=== PATIENT | male | born 1985 | race Caucasian/White ===

== ENCOUNTER 2018-02-27 14:35 | Day surgery (SDC) | payer SELFPAY ==
[~2018-02-27 14:35] MED LIST: DEXAMETHASONE SOD PHOSPHATE INJ 4 MG/1 ML VIAL ONE; LIDOCAINE 2% INJ-PF (20 MG/ML) 2 ML AMPUL ONE; ONDANSETRON HCL INJ/PF 4 MG/2 ML SDV ONE; SUCCINYLCHOLINE CHLORIDE INJ 200 MG/10 ML VIAL ONE
[2018-02-27] MEDS ORDERED: ONDANSETRON HCL INJ/PF 4 MG/2 ML SDV IV ONE (14:56)
[2018-02-27] MEDS ORDERED: MORPHINE SULFATE 10 MG/ML INJ IV ONE (14:56)
--- NOTE | 2018-02-27 14:59 | ER Document Report ---
ED General - General Mode of Arrival: Ambulatory Information source: Patient TRAVEL OUTSIDE OF THE [place] IN LAST 30 DAYS: No <ISHMAEL DAVIES - Last Filed: 02/27/18 15:10> <YANCI RODRÍGUEZ - Last Filed: 02/27/18 17:01> - General Chief Complaint: Puncture Wound Stated Complaint: NAIL IN RIGHT LEG Time Seen by Provider: 02/27/18 14:44 Notes: Patient is a 32 year old Bruneian speaking male presenting to the emergency department complaining of right leg pain due to a puncture wound. Friend/ Coworker at bedside states the patient accidentally shot himself in the right posterior leg due with an 3.5 inch nail gun at approximately 1400. Patient states it is very painful and he is unable to extend it due to the sensation that the nail is stuck on "something". Friend/Coworker at bedside is fluent in [place]uneian and Italian and was able to translate for the patient who speaks some Italian. ALVARADO was not rendered due to urgency. (ISHMAEL DAVIES) - Related Data Allergies/Adverse Reactions: No Known Allergies Allergy (Unverified 02/27/18 14:36) Past Medical History - General Information source: Patient - Social History Smoking Status: Current Some Day Smoker Cigarette use (# per day): Yes Chew tobacco use (# tins/day): No Smoking Education Provided: No Frequency of alcohol use: Occasional Family History: Reviewed & Not Pertinent <ISHMAEL DAVIES - Last Filed: 02/27/18 15:10> Review of Systems - Review of Systems Constitutional: No symptoms reported EENT: No symptoms reported Cardiovascular: No symptoms reported Respiratory: No symptoms reported Gastrointestinal: No symptoms reported Genitourinary: No symptoms reported Musculoskeletal: See HPI Skin: No symptoms reported Hematologic/Lymphatic: No symptoms reported Neurological/Psychological: No symptoms reported -: Yes All other systems reviewed and negative <ISHMAEL DAVIES - Last Filed: 02/27/18 15:10> Physical Exam <ISHMAEL DAVIES - Last Filed: 02/27/18 15:10> <YANCI RODRÍGUEZ - Last Filed: 02/27/18 17:01> - Vital signs Vitals: Temp Pulse Resp BP Pulse Ox 98.3 F 104 H 24 H 150/76 H 96 02/27/18 14:40 02/27/18 14:40 02/27/18 14:40 02/27/18 14:40 02/27/18 14:40 - Notes Notes: GENERAL: Alert,appears in a lot of pain, laying face down in bed. No acute distress. HEAD: Normocephalic, atraumatic. EYES: Pupils equal, round, and reactive to light. Extraocular movements intact. ENT: Oral mucosa moist, tongue midline. NECK: Full range of motion. Supple. Trachea midline. LUNGS: Clear to auscultation bilaterally, no wheezes, rales, or rhonchi. No respiratory distress. HEART: Regular rate and rhythm. No murmurs, gallops, or rubs. ABDOMEN: Soft, non-tender. Non-distended. Bowel sounds present in all 4 quadrants. EXTREMITIES: Moves all 4 extremities spontaneously. RLE contains a nail through blue jeans in the inferior part of the popliteal fossa, medial to midline. The nail indents the skin with products of blue jeans cut down to approximately 1 mm around nail. RLE is in a flexed position at a little more than 45 degrees. Patient is unable to extend leg due to pain and the feeling that the nail is stuck on "something". NEUROLOGICAL: Alert and oriented x3. Normal speech. PSYCH: Normal affect, normal mood. SKIN: Warm, dry, normal turgor. (ISHMAEL DAVIES) Course <SAMSONILASAGE - Last Filed: 02/27/18 15:10> - Laboratory Result Diagrams: 02/27/18 15:15 02/27/18 15:15 - Diagnostic Test Radiology reviewed: Image reviewed, Reports reviewed - CT scan shows the nail enters the posterior tibia and does not quite go all the way to the anterior cortex. The nail head remains outside of the skin and tense the skin inward. The nail appears to have missed the popliteal vessels. - Consults Dr. Bradley Time consulted: 16:25 Consulted provider: will see as inpatient <YANCI RODRÍGUEZ - Last Filed: 02/27/18 17:01> - Re-evaluation Re-evalutation: 02/27/18 17:01 The patient gave me permission to allow his boss to look at his CT scan. His boss took pictures of selected images on his cell phone to take back to show the patient so he could see what the nail through the tibia looked like. (YANCI RODRÍGUEZ) - Vital Signs Vital signs: Temp Pulse Resp BP Pulse Ox 98.3 F 104 H 24 H 150/76 H 96 02/27/18 14:40 02/27/18 14:40 02/27/18 14:40 02/27/18 14:40 02/27/18 14:40 - Laboratory Laboratory results interpreted by me: 02/27/18 02/27/18 15:15 15:15 Seg Neutrophils % 80.8 H Absolute Neutrophils 8.3 H Glucose 115 H Calcium 10.4 H Discharge <ISHMAEL DAVIES - Last Filed: 02/27/18 15:10> - Discharge Admitting Provider: Dr. Bradley Unit Admitted: Surgical Floor <YANCI RODRÍGUEZ - Last Filed: 02/27/18 17:01> - Discharge Clinical Impression: Bone injury Injury by nail gun Qualifiers: Encounter type: initial encounter Qualified Code(s): W29.4XXA - Contact with nail gun, initial encounter Foreign body in right lower extremity Qualifiers: Encounter type: initial encounter Qualified Code(s): S80.851A - Superficial foreign body, right lower leg, initial encounter Disposition: ADMITTED INPATIENT Scribe Attestation: 02/27/18 15:17 I personally performed the services described in the documentation, reviewed and edited the documentation which was dictated to the scribe in my presence, and it accurately records my words and actions. (YANCI RODRÍGUEZ) Scribe Documentation - Scribe Written by Cortez:: Cortez Guy, 02/27/2018 15:08 acting as scribe for :: Rafaela <ISHMAEL DAVIES - Last Filed: 02/27/18 15:10>
[2018-02-27] MEDS ORDERED: NORMAL SALINE 1000 ML 1,000 ML IV ONE (15:00)
[2018-02-27] MEDS ORDERED: CEFAZOLIN 1 GM/D5W RTU 1 GM/50 ML RTUPB IV ONE (15:10)
[2018-02-27] MEDS ORDERED: DIPH/PERTUSS(ACELL)/TETANUS VAC/PF 0.5 ML SYR (>=10YO) IM ONE (15:10)
[2018-02-27 15:28] LABS: ABSOLUTE LYMPHOCYTES (AUTO) 1.3 10^3/uL (0.5-4.7); ABSOLUTE MONOCYTES (AUTO) 0.6 10^3/uL (0.1-1.4); ABSOLUTE NEUT (AUTO) 8.3 10^3/uL (1.7-8.2); BASOPHILS % (AUTO) 0.3 % (0-2); EOSINOPHILS % (AUTO) 0.1 % (0-6); HEMATOCRIT 41.3 % (37.9-51.0); HEMOGLOBIN 14.8 g/dL (13.5-17.0); LYMPHOCYTES % (AUTO) 13.1 % (13-45); MEAN CORPUSCULAR HEMOGLOBIN 31.7 pg (27.0-33.4); MEAN CORPUSCULAR HGB CONC 35.8 g/dL (32.0-36.0); MEAN CORPUSCULAR VOLUME 89 fl (80-97); MONOCYTES % (AUTO) 5.7 % (3-13); PLATELET COUNT 226 10^3/uL (150-450); RED BLOOD COUNT 4.66 10^6/uL (4.35-5.55); RED CELL DISTRIBUTION WIDTH 13.6 % (11.5-14.0); SEGMENTED NEUTROPHILS % (AUTO) 80.8 % (42-78); TOTAL CELLS COUNTED % (AUTO) 100 %; WHITE BLOOD COUNT 10.2 10^3/uL (4.0-10.5)
[2018-02-27 15:43] LABS: ALANINE AMINOTRANSFERASE 31 U/L (21-72); ALBUMIN 4.6 g/dL (3.5-5.0); ALKALINE PHOSPHATASE 73 U/L (38-126); ANION GAP 14 (5-19); ASPARTATE AMINO TRANSFERASE 35 U/L (17-59); BILIRUBIN,DIRECT 0.3 mg/dL (0.0-0.4); BILIRUBIN,TOTAL 0.8 mg/dL (0.2-1.3); BLOOD UREA NITROGEN 16 mg/dL (7-20); CALCIUM 10.4 mg/dL (8.4-10.2); CARBON DIOXIDE 25 mmol/L (22-30); CHLORIDE 104 mmol/L (98-107); GLUCOSE 115 mg/dL (75-110); POTASSIUM 4.3 mmol/L (3.6-5.0); SODIUM 143.1 mmol/L (137-145); TOTAL PROTEIN 7.7 g/dL (6.3-8.2)
--- NOTE | 2018-02-27 16:28 | RADIOLOGY REPORT (SQ) ---
EXAM DESCRIPTION: CTA RIGHT LOWER EXTREMITY COMPLETED DATE/TIME: 02/27/2018 3:31 pm REASON FOR STUDY: nail in popliteal fossa shot with nail gun COMPARISON: None. TECHNIQUE: CT scan of the right knee performed with intravenous contrast using helical lubrication technician nique with dynamic intravenous contrast injection. Immediate arterial phase and delayed venous phase images were obtained. Images reviewed with lung, soft tissue, and bone windows. Reconstructed coron al and sagittal MPR images reviewed. All images stored on PACS. Advanced 3D imaging as volume-rendering, MIPs, SSD performed? yes All CT scanners at this facility use dose modulation, iterative reconstruction, and/or weight based d osing when appropriate to reduce radiation dose to as low as reasonably achievable (ALARA). [facility]: Dose Right [facility]: CareDose [facility]: Dose Right [facility]: Teradose 4D [facility]: Drip In CONTRAST TYPE AND DOSE: contrast/concentration: Isovue 350.00 mg/ml; Total Contrast Delivered: 100.0 ml; Total Saline Delivered: 80.0 ml RENAL FUNCTION: None required. The patient is less than 50 years old. LIMITATIONS: Nonstandard radiographic positioning, limited contrast bolus FINDINGS: CT angio of the right knee was performed. On coronal reconstruction series 405, image 34/62, a nail is embedded in the lower inner quadrant of the popliteal fossa, coursing through the medial head gastrocnemius muscle, with the tip embedded in the medial proximal tibial metaphysis. The nail is 5 mm medial to the popliteal artery and medial po pliteal vein. No gross arterial injury is identified. Normal contrast enhancement the paired poplit eal veins. These images were reviewed with Dr. Vilchis from interventional Radiology. The report was discussed with Dr. Russo in the emergency room. The nail is 8 cm in length, about 4 cm of the nail is embedded in the medial tibial metaphysis. IMPRESSION: No CT angio evidence of popliteal artery injury, or popliteal vein injury. 8 cm nail, 4 cm of which is embedded in the medial proximal tibial metaphysis TECHNICAL DOCUMENTATION: JOB ID: [id number] Quality ID # [id number]: Final reports with documentation of one or more dose reduction techniques (e.g., Au tomated exposure control, adjustment of the mA and/or kV according to patient size, use of iterative reconstruction technique) 2010 [employer]- All Rights Reserved Reading location - IP/workstation name: [email or web address]
[2018-02-27] MEDS ORDERED: MORPHINE SULFATE 10 MG/ML INJ IV PRN ×2 (16:38→19:37)
[2018-02-27] MEDS ORDERED: ONDANSETRON HCL INJ/PF 4 MG/2 ML SDV IV PRN (16:38)
[2018-02-27] MEDS ORDERED: DEXTROSE 5%-1/2 NORMAL SALINE 500 ML IV ONE (16:42)
[2018-02-27] MEDS ORDERED: FENTANYL CITRATE INJ/PF 100 MCG/2 ML AMPUL ONE (17:43)
[2018-02-27] MEDS ORDERED: MIDAZOLAM 2 MG/2 ML INJ ONE (17:43)
[2018-02-27] MEDS ORDERED: PROPOFOL INJ 200 MG/20 ML VIAL IV ONE (17:44)
--- NOTE | 2018-02-27 19:19 | PDOC H&P ---
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 The patient underwent evaluation with CTA with a subsequent conclusion that there is not an associated vascular injury. Orthopedics is now consulted for management of the nail gun injury. Past Medical History Medical History: None Past Surgical History Past Surgical History: Reports: None Social History Information Source: Patient, [facility] Records Smoking Status: Current Some Day Smoker Cigarettes Packs Per Day: 4 Frequency of Alcohol Use: Social Family History Family History: Reviewed & Not Pertinent Parental Family History Reviewed: No Children Family History Reviewed: No Sibling(s) Family History Reviewed.: No Medication/Allergy Home Medications: No Home Medications 02/27/18 Allergies/Adverse Reactions: No Known Allergies Allergy (Unverified 02/27/18 14:36) Review of Systems All systems: as per [facility] Physical Exam Vital Signs: Temp Pulse Resp BP Pulse Ox 36.8 C 70 19 154/94 H 100 02/27/18 18:39 02/27/18 18:39 02/27/18 18:39 02/27/18 18:40 02/27/18 18:39 Intake & Output 02/26/18 02/27/18 02/28/18 06:59 06:59 06:59 Intake Total 50 Output Total 650 Balance -600 Weight 86.4 kg Physical Exam: The patient is a young male somewhat anxious but in no acute distress. He is Serbian-speaking only and all communication is through a aerial applicator pilot. General appearance: PRESENT: no acute distress, well-developed Head exam: PRESENT: normocephalic Respiratory exam: PRESENT: unlabored Cardiovascular exam: PRESENT: RRR Pulses: PRESENT: +1 pedal pulses bilateral Vascular exam: PRESENT: normal capillary refill GI/Abdominal exam: PRESENT: soft Rectal exam: PRESENT: deferred Extremities exam: PRESENT: other - There is a nail entrance wound with a protruding head and surrounding clothing that enters the infrapopliteal fossa region of the right lower extremity just distal to the crease. The wound itself is dry without any drainage. There is brisk capillary refill to the digits. Sensory examination is intact to light touch. The patient is is able to wiggle his great toe up and down. Neurological exam: PRESENT: alert, awake, oriented to person, oriented to place , oriented to time, oriented to situation. ABSENT: motor sensory deficit Psychiatric exam: PRESENT: appropriate affect, normal mood. ABSENT: homicidal ideation, suicidal ideation Skin exam: PRESENT: dry, intact, warm. ABSENT: cyanosis, rash Results Impressions: Lower Extremity CTA 02/27/18 14:59 IMPRESSION: No CT angio evidence of popliteal artery injury, or popliteal vein injury. 8 cm nail, 4 cm of which is embedded in the medial proximal tibial metaphysis Status: Imported from PACS Assessment & Plan - Diagnosis (1) Injury by nail gun Qualifiers: Encounter type: initial encounter Qualified Code(s): W29.4XXA - Contact with nail gun, initial encounter Is this a current diagnosis for this admission?: Yes Plan: 32-year-old male with an accidental self-inflicted nail gun injury to the posterior right knee. My concerns about this injury are twofold. The first is that there may be foreign body introduced into the wound by the material that adheres 1 nail to the next to promote feeding into the gun. This could either be in the form of cement or plastic. This may lead to a foreign body reaction at some point in the future. My second concern is that removing the nail may decompress vascular structures that have been injured leading to bleeding and the need for a popliteal exploration. This is discussed with the patient through the commercial intelligence manager and relatively great detail. - Time Time Spent: 50 to 70 Minutes Anticipated discharge: Home Within: within 24 hours
[2018-02-27] MEDS ORDERED: PROMETHAZINE HCL INJ 25 MG/1 ML VIAL IV PRN (19:37)
[2018-02-27] MEDS ORDERED: CEFAZOLIN INJ 1 GM VIAL ONE (19:37)
[2018-02-27] MEDS ORDERED: DIPHENHYDRAMINE HCL 50 MG/ML VIAL IV PRN (19:37)
[2018-02-27] MEDS ORDERED: FENTANYL CITRATE INJ/PF 100 MCG/2 ML AMPUL IV PRN ×3 (19:37)
[2018-02-27] MEDS ORDERED: MEPERIDINE HCL/PF INJ 25 MG/1 ML DISP.SYRIN IV PRN (19:37)
--- NOTE | 2018-02-27 19:43 | Operative Report ---
Operative Report DATE OF SURGERY: 02/27/18 PREOPERATIVE DIAGNOSIS: Nail gun injury right knee OPERATION: Removal of nail, I&D of wound bed SURGEON: TUNDE SEQUEIRA ANESTHESIA: GA TISSUE REMOVED OR ALTERED: Nail. Surrounding soft tissue ESTIMATED BLOOD LOSS: Minimal PROCEDURE: With the patient prone on the operative table the right lower extremities prepped and draped in a sterile fashion. The nail head protrudes from the skin. This was grabbed with a by prescription. The nail is removed with a combination of twisting and extraction. The nail reveals a cement to adhesive on the distal half to third. This raises the concern about potential foreign bodies deeper in the wound, particularly in the tibial bone. There is no appreciable bleeding this observed. The nail insertion site is discolored around the circumference of where the nail entered the soft tissue. The nail tract at the skin and through the proximal soft tissue is debrided using a 15 blade. A sterile compressive dressing was applied and the patient's return to the PACU.
--- NOTE | 2018-02-27 19:46 | Discharge Summary ---
Discharge Summary (SDC) - Discharge Final Diagnosis: Nail gun injury right leg Date of Surgery: 02/27/18 Discharge Date: 02/27/18 Condition: Good Treatment or Instructions: Weightbearing as tolerated ambulation. Do not immerse right lower extremity in a bath Prescriptions: Cephalexin Monohydrate [Keflex 500 mg Capsule] 500 mg PO QID #20 capsule Oxycodone HCl/Acetaminophen [Percocet 5-325 mg Tablet] 1 tab PO Q6 #25 tab
--- NOTE | 2018-02-27 19:59 | Discharge Summary ---
Discharge Summary (SDC) - Discharge Final Diagnosis: Nail gun injury right tibia Date of Surgery: 02/27/18 Discharge Date: 02/27/18 Condition: Good Treatment or Instructions: Weightbearing as tolerated ambulation. Do not immerse right lower extremity in a bath Prescriptions: Cephalexin Monohydrate [Keflex 500 mg Capsule] 500 mg PO QID #20 capsule Oxycodone HCl/Acetaminophen [Percocet 5-325 mg Tablet] 1 tab PO Q6 #25 tab Discharge Diet: As Tolerated, Regular Respiratory Treatments at Home: Deep Breathing/Coughing Discharge Activity: Balance Activity w/Rest, No Driving, No tub bath Home Care Assistance: None Needed Report the Following to Your Physician Immediately: Shortness of Breath, Fever over 101 Degrees, Drainage-Foul Smelling
[2018-02-27] MEDS ORDERED: OXYCODONE-ACETAMINOPHEN 5-325 MG TABLET PO PRN ×2 (20:13→20:14)
[2018-02-27 21:00] VITALS: BP 138/80
[2018-02-27] MEDS ORDERED: CEFAZOLIN 1 GM/D5W RTU 1 GM/50 ML RTUPB IV SCH (21:00)
== END 2018-02-28 00:07 | disposition home or self-care (01) ==
LOC: ER 14:35 → ASU 16:51 → UNDOADMIN 16:51 → EH 16:51 → 5 17:27 → EH 17:27 → UNDODISIN 02-28 00:07 → ASU 02-28 00:07
PROVIDERS: ATTEND Orthopaedic Surgery
DX: S80.251A Superficial foreign body, right knee, initial encounter (principal); W29.4XXA Contact with nail gun, initial encounter; Z23 Encounter for immunization; F17.210 Nicotine dependence, cigarettes, uncomplicated
CPT/HCPCS: 99285; 96361; 90471; 96375; 96365; 36415; 85025; 80053; 88300 ×2; 73706; 90715; 27310; J2250; J0690 ×2; J1100; J3010; J2270; J0330; J2405; J7070; J7030; J2704; J3490; 00400